=== PATIENT | female | born 1990 | race Caucasian/White ===

== ENCOUNTER 2016-03-01 22:40 | Inpatient (IN) | payer OTHER ==
[~2016-03-01] VITALS: Ht 165.1 cm; Wt 81.6 kg
[2016-03-01 23:04] VITALS: BP 139/97
[2016-03-01] MEDS ORDERED: CLARITIN10 M3 PO (23:35)
[2016-03-01] MEDS ORDERED: PRENATAL TABLE1 EAC3 PO (23:36)
[2016-03-02] VITALS (20 sets, daily range): BP systolic 112–143; BP diastolic 68–85
[2016-03-02 00:01] LABS: EOSINOPHIL (%) 0.4 % (0-5); EOSINOPHIL COUNT 0.1 K/uL (0-0.3); HEMATOCRIT 38.2 % (36.0-46.0); IMMATURE GRANULOCYTE (%) 0.2 % (0.0-0.7); IMMATURE GRANULOCYTE COUNT 0.3 K/uL; LYMPHOCYTE COUNT 1.9 K/uL (1.0-2.8); MCH 28.4 PG (29.0-34.0); MCV 83.4 FL (83-99); MEAN PLAT.VOLUME 11.4 uM^3 (9.5-12.4); MONOCYTE (%) 8.1 % (3-12); MONOCYTE COUNT 1.3 K/uL (0-0.8); NEUTROPHIL (%) 79.2 % (45-76); NEUTROPHIL COUNT 12.8 K/uL (1.8-6.4); PLATELET COUNT 248 K/uL (156-360); RBC DIS.WIDTH-SD 38.6 % (39-53); RED BLOOD COUNT 4.58 M/uL (3.80-5.20); WHITE BLOOD COUNT 16.2 K/uL (4.1-10.2)
[2016-03-02] MEDS ORDERED: IBUPROFEN800 MG PO (12:47)
[2016-03-03 07:08] VITALS: BP 144/85
[2016-03-03 16:00] VITALS: BP 135/88
== END 2016-03-03 18:26 | disposition home or self-care (01) | DRG 775 ==
LOC: LDRP-OP 22:40 → 2WEST 22:41 → LDRP-OP 04-06 11:37
PROVIDERS: Midwife
DX: O70.0 First degree perineal laceration during delivery (principal); O69.81X0 Labor and delivery complicated by cord around neck, without compression, not applicable or unspecified; Z3A.39 39 weeks gestation of pregnancy; Z37.0 Single live birth
CPT/HCPCS: 85025; C1755; G0378; J2795; J3010; J7120